=== PATIENT | female | born 1960 | race Caucasian/White ===

== ENCOUNTER 2018-05-26 12:00 | Observation (INO) ==
[2018-05-26] MEDS ORDERED: Acetaminophen 325 MG Tablet PO PRN (20:17)
[2018-05-26] MEDS ORDERED: Temazepam 15 MG Capsule PO PRN (21:00)
[2018-05-26] MEDS: Sod Chloride 0.9% Inj 1,000 ML IV.CONT SCH (21:34)
[2018-05-27] MEDS ORDERED: Morphine Inj 4 MG/ML Vial IV.PUSH PRN (01:10)
[2018-05-27] MEDS ORDERED: Dextrose 50% in Water 50 ML Vial IV.PUSH PRN (01:13)
[2018-05-27 06:49] LABS: Baso % (Auto) 0.2 % (0.0-2.0); Eos % (Auto) 0.1 % (0.0-4.0); Hematocrit 36.1 % (35.0-46.0); Hemoglobin 11.9 gm/dL (11.6-15.3); Lymph # (Auto) 1.3 th/mm3 (1.0-4.8); Lymph % (Auto) 11.6 % (9.0-44.0); Mean Corpuscular HGB Conc 33.1 % (32.0-36.0); Mean Corpuscular Hemoglobin 29.9 pg (27.0-34.0); Mean Corpuscular Volume 90.5 fL (80.0-100.0); Mean Platelet Volume 7.9 fL (7.0-11.0); Mono % (Auto) 8.7 % (0.0-8.0); Neut # (Auto) 9.3 th/mm3 (1.8-7.7); Neut % (Auto) 79.4 % (16.0-70.0); Platelet Count 342 th/mm3 (150-450); Red Blood Count 3.99 mil/mm3 (4.00-5.30); Red Cell Distribution Width 12.1 % (11.6-17.2); White Blood Count 11.6 th/mm3 (4.0-11.0)
[2018-05-27] MEDS: Sod Chloride 0.9% Inj 1,000 ML IV.CONT SCH ×2 (06:50→17:03)
[2018-05-27 07:00] LABS: Potassium 3.7 meq/L (3.5-5.1)
[2018-05-27 07:06] LABS: Calcium 8.7 mg/dL (8.5-10.1); Carbon Dioxide 29.7 meq/L (21.0-32.0)
[2018-05-27] MEDS: Insulin NovoLOG Aspart Correctional Sugar Inj SQ SCH ×4 (09:32→20:58)
--- NOTE | 2018-05-27 10:29 | P.HP ---
History of Present Illness Primary Care Physician: No Primary Care Physician Chief Complaint: Nausea vomiting History of Present Illness: 57-year-old female with known history of hypertension, hyperlipidemia, diabetes , fibromyalgia who originally presented to the emergency department 05/25/18 and was pyelonephritis and was discharged home on Cipro. Patient states that she went home and she was not able to tolerate anything by mouth. She had nausea vomiting so she came back to the emergency department. Patient had workup done again in the emergency department showed a mild worsening in her WBC count however renal functions and electrolytes are all stable. As indicated that the patient was given Zofran without any significant relief. Because the patient could not tolerate anything by mouth, it was recommended by the ER physician that the patient be observed in the hospital for further evaluation and management. Patient denies any abdominal pain. She has not tried to tolerate anything by mouth this morning. Patient denies any hematemesis, diarrhea, constipation, melena, hematochezia. - Diagnosis (1) Intractable nausea and vomiting Review of Systems All other systems reviewed negative except as stated in HPI Gastrointestinal: Reports nausea, Reports vomiting PMFSH - History History Provided By: Patient - Medical History Medical History: Medical History (Last Reviewed 05/27/18 @ 08:42 by EILEEN Walker) Hx of (Acute) Hypothyroid (Acute) High cholesterol (Acute) Depressed (Acute) Tubal ligation status (Acute) Hypertension (Acute) Osteoarthritis (Acute) Diabetes (Acute) Neuropathy (Acute) Fibromyalgia - Surgical History Surgical History: Surgical History (Last Reviewed 05/27/18 @ 08:42 by EILEEN Walker) Hx of tubal ligation (Acute) - Family History Family History: Family History (Last Updated 05/27/18 @ 10:28 by EILEEN Walker) Father History of fibromyalgia History of hypertension History of diabetes mellitus - Tobacco History Second Hand Smoke Exposure: Yes (SON AND ) Tobacco Use In Past 30 Days: No Smoking Status: Never smoker - Alcohol History How Often Do You Have a Drink Containing Alcohol: Never - Substance Use History Substance History: No History of Abuse Medications and Allergies Active Medications: Active Medications Acetaminophen (Tylenol) 650 mg PO Q4H PRN PRN Reason: Temp > 100.4 Clonidine HCl (Catapres) 0.1 mg PO Q6H PRN PRN Reason: SBP>160, DBP>90 Last Admin: 05/27/18 05:10 Dose: 0.1 mg Dextrose (D50w Vial) 50 ml IV.PUSH UNSCH PRN PRN Reason: PER HYPOGLYCEMIA PROTOCOL Glucagon (Glucagon Inj) 1 mg OTHER PRN PRN PRN Reason: for Hypoglycemia Protocol Ceftriaxone Sodium 1,000 mg/ (Sodium Chloride) 100 mls @ 200 mls/hr IV.SIG Q24H KARIN Sodium Chloride (Ns Inj) 1,000 mls @ 100 mls/hr IV.CONT .Q10H KARIN Last Admin: 05/27/18 06:50 Dose: 100 mls/hr Insulin Aspart (Novolog Insulin Correctional Sugar Inj) 0 unit SQ ACHS KARIN; Protocol Last Admin: 05/27/18 09:32 Dose: 4 unit Ondansetron HCl (Zofran Inj) 4 mg IV.PUSH Q6H PRN PRN Reason: NAUSEA OR VOMITING Last Admin: 05/27/18 05:10 Dose: 4 mg Promethazine HCl (Phenergan Inj) 25 mg IM Q6H PRN PRN Reason: NAUSEA OR VOMITING Last Admin: 05/27/18 09:32 Dose: 25 mg Temazepam (Restoril) 15 mg PO HS PRN PRN Reason: INSOMNIA Last Admin: 05/26/18 21:47 Dose: 15 mg Allergies Allergy/AdvReac Type Severity Reaction Status Date / Time No Known Allergies Allergy Verified 05/27/18 12:16 Home Medications Medication Instructions Recorded Confirmed Type amlodipine 5 mg PO DAILY 05/25/18 05/27/18 History atorvastatin 20 mg PO DAILY 05/25/18 05/27/18 History cyclobenzaprine 10 mg PO TID 05/25/18 05/27/18 History gabapentin 600 mg PO TID 05/25/18 05/27/18 History hydrochlorothiazide 12.5 mg PO DAILY 05/25/18 05/27/18 History insulin NPH and regular human 15 unit SUB-Q BID 05/25/18 05/27/18 History [Novolin 70/30 U-100 Insulin] ropinirole 1 mg PO TID 05/25/18 05/27/18 History Exam Vital signs: Vital Signs 05/26/18 18:30 05/26/18 22:00 05/27/18 00:00 Temperature 98.5 F 97 F L Pulse Rate 108 H 109 H 108 H Respiratory Rate 20 18 Blood Pressure 170/98 H 204/100 H Pulse Oximetry 98 99 05/27/18 04:00 Temperature 98.2 F Pulse Rate 102 H Respiratory Rate 20 Blood Pressure 180/100 H Pulse Oximetry 98 Intake & Output 05/26/18 05/27/18 05/27/18 18:59 06:59 18:59 Intake Total 1060 / 1060 Balance 1060 / 1060 Weight 109.5 kg Intake: IV 1000 / 1000 NS Inj 1,000 ML @ 100 mls/hr IV 1000 / 1000 .CONT .Q10H KARIN Rx#:[id number] Oral 60 / 60 Other: # Voids 3 Date of Last Bowel Movement 05/26/18 # Emeses 2 Weight On Admission 107.8 kg Narrative: GENERAL: Well-developed, well-nourished, in no acute distress. alert and orientated HEENT: Head is normocephalic without any lesions or masses noted. Facial features are symmetric. Eyes: Pupils equal round reactive to light. Extraocular muscles are intact. Conjunctivae were clear. Oropharyngeal: Pharynx without any erythema edema. Tongue is midline without deviation. Buccal mucosa is moist without any masses or lesions NECK: Supple without any masses. Trachea midline no deviation. No JVD, no bruits are appreciated CARDIAC: Regular rhythm, regular rate. S1/S2 are heard. No murmurs gallops or rubs. LUNGS: Clear to auscultation bilaterally. No wheeze, rhonchi or rales. No use of accessory muscles on inspiration or expiration. ABDOMEN: Soft, nontender. Nondistended. Bowel sounds heard in all 4 quadrants. No organomegaly or masses. Negative rebound, negative guarding EXTREMITIES: No edema, pulses are equal bilaterally. No cyanosis or clubbing NEUROLOGY: Mood and affect appear appropriate. Cranial nerves II through XII grossly intact. Muscle strength 5/5 in upper and lower extremities bilaterally. Deep tendon reflexes are 2+ in upper and lower extremities bilaterally. Results - Labs CBC & Chem 7: 05/27/18 05:10 05/27/18 05:10 Labs: Laboratory Results - last 24 hr 05/27/18 05/27/18 05/27/18 00:10 05:10 05:10 CBC w Diff Auto diff final WBC 11.6 H RBC 3.99 L Hgb 11.9 Hct 36.1 MCV 90.5 D MCH 29.9 MCHC 33.1 RDW 12.1 Plt Count 342 MPV 7.9 Neut % (Auto) 79.4 H Lymph % (Auto) 11.6 Moody % (Auto) 8.7 H Eos % (Auto) 0.1 Baso % (Auto) 0.2 Neut # (Auto) 9.3 H Lymph # (Auto) 1.3 Moody # (Auto) 1.0 H Eos # (Auto) 0.0 Baso # (Auto) 0.0 WBC Differential . Differential Comment . Sodium 140 Potassium 3.7 Chloride 103 Carbon Dioxide 29.7 Anion Gap 7 BUN 23 H Creatinine 1.00 Estimated GFR 57 L POC Glucose 286 H Random Glucose 237 H Calcium 8.7 D 05/27/18 07:39 CBC w Diff WBC RBC Hgb Hct MCV MCH MCHC RDW Plt Count MPV Neut % (Auto) Lymph % (Auto) Moody % (Auto) Eos % (Auto) Baso % (Auto) Neut # (Auto) Lymph # (Auto) Moody # (Auto) Eos # (Auto) Baso # (Auto) WBC Differential Differential Comment Sodium Potassium Chloride Carbon Dioxide Anion Gap BUN Creatinine Estimated GFR POC Glucose 247 H Random Glucose Calcium Caprini VTE Risk Assessment Caprini VTE Risk Assessment: No/Low Risk (score <= 1) Caprini Risk Assessment Model: Point Value = 1 Point Value = 2 Point Value = 3 Point Value = 5 Age 41-60 Minor surgery BMI > 25 kg/m2 Swollen legs Varicose veins or History of unexplained or recurrent spontaneous Oral contraceptives or hormone replacement Sepsis (< 1 month) Serious lung disease, including pneumonia (< 1 month) Abnormal pulmonary function Acute myocardial infarction Congestive heart failure (< 1 month) History of inflammatory bowel disease Medical patient at bed rest Age 61-74 Arthroscopic surgery Major open surgery (> 45 min) Laparoscopic surgery (> 45 min) Malignancy Confined to bed (> 72 hours) Immobilizing plaster cast Central venous access Age >= 75 History of VTE Family history of VTE Factor V Leiden Prothrombin [id number] Lupus anticoagulant Anticardiolipin antibodies Elevated serum homocysteine Heparin-induced thrombocytopenia Other congenital or acquired thrombophilia Stroke (< 1 month) Elective arthroplasty Hip, pelvis, or leg fracture Acute spinal cord injury (< 1 month) Prophylaxis Regimen: Total Risk Factor Score Risk Level Prophylaxis Regimen 0-1 Low Early ambulation 2 Moderate Order ONE of the following: *Sequential Compression Device (SCD) *Heparin 5000 units SQ BID 3-4 Higher Order ONE of the following medications: *Heparin 5000 units SQ TID *Enoxaparin/Lovenox 40 mg SQ daily (WT < 150 kg, CrCl > 30 mL/min) *Enoxaparin/Lovenox 30 mg SQ daily (WT < 150 kg, CrCl > 10-29 mL/min) *Enoxaparin/Lovenox 30 mg SQ BID (WT < 150 kg, CrCl > 30 mL/min) AND/OR *Sequential Compression Device (SCD) 5 or more Highest Order ONE of the following medications: *Heparin 5000 units SQ TID (Preferred with Epidurals) *Enoxaparin/Lovenox 40 mg SQ daily (WT < 150 kg, CrCl > 30 mL/min) *Enoxaparin/Lovenox 30 mg SQ daily (WT < 150 kg, CrCl > 10-29 mL/min) *Enoxaparin/Lovenox 30 mg SQ BID (WT < 150 kg, CrCl > 30 mL/min) AND *Sequential Compression Device (SCD) Assessment and Plan - Assessment (1) Intractable nausea and vomiting Code(s): R11.2 - Nausea with vomiting, unspecified Status: Acute - Plan Intractable nausea vomiting -Could be secondary to medication side effects, possible diabetic gastroparesis -We will give Phenergan 25 mg IM as needed -Start Reglan 5 mg IV before meals -Advance diet as tolerated -The patient tolerates diet, anticipate discharging home with p.o. medication Diabetes -Diabetic diet -Accu-Cheks with sliding scale insulin Urinary tract infection/pyelonephritis -Urine culture did indicate pansensitive Klebsiella pneumonia -Patient is on Rocephin at this time Hypertension, hyperlipidemia -Continue home medications Fibromyalgia -Continue home medications DVT prevention -Sequential compression devices Discussed Condition With: Patient, nursing staff, significant other at bedside
[2018-05-27] MEDS: amLODIPine 5 MG Tablet PO SCH (13:33)
[2018-05-28] MEDS: Sod Chloride 0.9% Inj 1,000 ML IV.CONT SCH ×2 (05:31→14:03)
[2018-05-28] MEDS: amLODIPine 5 MG Tablet PO SCH (09:05)
[2018-05-28] MEDS: Insulin NovoLOG Aspart Correctional Sugar Inj SQ SCH ×4 (09:07→22:52)
--- NOTE | 2018-05-28 11:11 | P.PN ---
Subjective Interval history: 57-year-old female who is seen and examined today for follow-up on intractable nausea and vomiting, urinary tract infection. Patient still unable tolerate anything by mouth. Still having episodes of nausea vomiting. Patient with uncontrolled hypertension, tachycardia still. Patient remains afebrile Physical Exam Vital signs: Vital Signs 05/27/18 12:00 05/27/18 15:13 05/27/18 16:00 Temperature 97.8 F 98.5 F Pulse Rate 100 H 101 H Respiratory Rate 20 20 Blood Pressure 176/100 H 160/90 H 162/96 H Pulse Oximetry 100 99 05/27/18 20:00 05/28/18 00:00 05/28/18 04:00 Temperature 98.3 F 98.7 F 98.2 F Pulse Rate 104 H 107 H 110 H Respiratory Rate 20 20 20 Blood Pressure 152/86 H 170/84 H 168/90 H Pulse Oximetry 96 99 99 05/28/18 08:00 Temperature 97.8 F Pulse Rate 105 H Respiratory Rate 17 Blood Pressure 182/87 H Pulse Oximetry 97 Intake & Output 05/27/18 05/28/18 05/28/18 18:59 06:59 18:59 Intake Total 1100 / 1100 1240 / 1240 Balance 1100 / 1100 1240 / 1240 Weight 109.2 kg Intake: IV 1100 / 1100 1000 / 1000 NS Inj 1,000 ML @ 100 mls/hr IV 1000 / 1000 1000 / 1000 .CONT .Q10H KARIN Rx#:[id number] Rocephin Inj 1,000 MG In NS Inj 100 / 100 100 ML @ 200 mls/hr IV.SIG Q24H KARIN Rx#:[id number] Oral 240 / 240 Other: # Voids 3 4 Date of Last Bowel Movement 05/26/18 05/26/18 # Emeses 6 4 Narrative: GENERAL: Well-developed, well-nourished, in no acute distress. alert and orientated HEENT: Head is normocephalic without any lesions or masses noted. Facial features are symmetric. Eyes:. Extraocular muscles are intact. Conjunctivae were clear. NECK: Supple without any masses. Trachea midline no deviation. No JVD, CARDIAC: Regular rhythm, regular rate. S1/S2 are heard. No murmurs gallops or rubs. LUNGS: Clear to auscultation bilaterally. No wheeze, rhonchi or rales. No use of accessory muscles on inspiration or expiration. ABDOMEN: Soft, nontender. Nondistended. Bowel sounds heard in all 4 quadrants. No organomegaly or masses. Negative rebound, negative guarding EXTREMITIES: No edema, pulses are equal bilaterally. No cyanosis or clubbing NEUROLOGY: Mood and affect appear appropriate. Cranial nerves II through XII grossly intact. Moving all extremities, speech is clear Results - Labs CBC & Chem 7: 05/27/18 05:10 05/27/18 05:10 Laboratory Results - last 24 hr 05/27/18 05/27/18 05/27/18 11:18 16:20 20:46 POC Glucose 235 H 226 H 248 H 05/28/18 08:02 POC Glucose 277 H Assessment and Plan - Assessment (1) Intractable nausea and vomiting Code(s): R11.2 - Nausea with vomiting, unspecified Status: Acute - Plan Intractable nausea vomiting -Could be secondary to medication side effects, possible diabetic gastroparesis -Continue Phenergan 25 mg IM as needed, Reglan 5 mg IV before meals -Obtain CT of the abdomen and pelvis to rule out any etiology of the patient's intractable nausea vomiting -Advance diet as tolerated Diabetes -Diabetic diet -Accu-Cheks with sliding scale insulin Urinary tract infection/pyelonephritis -Urine culture did indicate pansensitive Klebsiella pneumonia -Patient is on Rocephin at this time Hypertension, hyperlipidemia -Continue home medications Fibromyalgia -Continue home medications DVT prevention -Sequential compression devices
--- NOTE | 2018-05-28 14:04 | CT ---
EXAM DATE: 05/28/2018 1:50 PM EDT AGE/SEX: 57 years / Female INDICATIONS: Intractable nausea and vomiting. CLINICAL DATA: This is the patient's initial encounter. Patient reports that signs and symptoms have been present for 4 - 6 days and indicates a pain score of 2/10. MEDICAL/SURGICAL HISTORY: Diabetes. Hypertension. Tubal ligation. RADIATION DOSE: 24.91 CTDI (mGy) COMPARISON: No prior exams available for comparison. TECHNIQUE: Multiple contiguous axial images were obtained through the abdomen. Images were obtained using multiple row detector helical technique. Using automated exposure control and adjustment of the mA and/or kV according to patient size, radiation dose was kept as low as reasonably achievable to o btain optimal diagnostic quality images. DICOM format image data is available electronically for rev iew and comparison. FINDINGS: Lung bases are clear. No pleural effusion. Small amount pericardial fluid present. Small hiatal herni a. No acute findings in the liver, spleen, adrenals. Multiple layering gallstones in the gallbladder wit hout biliary ductal dilatation. There is some stranding of fat around the kidneys but also extending into the mesentery which is nonspecific. This can indicate prior inflammatory changes. A mild mesente ritis could give this appearance. There is mild constipation. No bowel obstruction. No free air. No significant free fluid. CONCLUSION: 1. Numerous layering gallstones without biliary ductal dilatation. 2. Mild constipation. 3. Stranding of fat in the abdomen predominantly around the kidneys and to a lesser extent around th e pancreas. Also extends into the root of the mesentery. Findings are nonspecific and can relate to p rior inflammatory changes. Mesenteritis could give this appearance. Electronically signed by: Remigio Fonseca MD 05/28/2018 2:03 PM EDT
[2018-05-28] MEDS ORDERED: Bisacodyl 10 MG Supp RECTAL ONE (14:12)
[2018-05-29] MEDS ORDERED: Senna/Docusate Sodium 8.6/50 MG Tablet PO ONE (08:05)
--- NOTE | 2018-05-29 08:09 | P.PN ---
Subjective Interval history: 57-year-old female who is seen and examined today in follow-up for intractable nausea vomiting. Patient doing little better today. She tolerated some Jell-O this morning. She has not vomited since yesterday. CT scan did show significant amount of stool throughout the colon, no obstruction was seen. Patient was given suppository yesterday with minimal output. Vital signs are stable. Patient remains afebrile. Physical Exam Vital signs: Vital Signs 05/28/18 12:00 05/28/18 20:00 05/29/18 00:00 Temperature 98.4 F 97.8 F 97.4 F L Pulse Rate 21 L 107 H 98 H Respiratory Rate 21 20 20 Blood Pressure 199/96 H 154/98 H 155/91 H Pulse Oximetry 95 97 97 05/29/18 04:00 05/29/18 07:47 Temperature 97.4 F L 98.2 F Pulse Rate 101 H 102 H Respiratory Rate 20 20 Blood Pressure 174/100 H 175/83 H Pulse Oximetry 96 97 Intake & Output 05/28/18 05/29/18 05/29/18 18:59 06:59 18:59 Intake Total 1100 / 1100 1060 / 1060 Balance 1100 / 1100 1060 / 1060 Weight 111.1 kg Intake: IV 1100 / 1100 1000 / 1000 NS Inj 1,000 ML @ 100 mls/hr IV 1000 / 1000 1000 / 1000 .CONT .Q10H KARIN Rx#:[id number] Rocephin Inj 1,000 MG In NS Inj 100 / 100 100 ML @ 200 mls/hr IV.SIG Q24H KARIN Rx#:[id number] Oral 60 / 60 Other: # Voids 2 Date of Last Bowel Movement 05/28/18 Narrative: GENERAL: Well-developed, well-nourished, in no acute distress. alert and orientated HEENT: Head is normocephalic without any lesions or masses noted. Facial features are symmetric. Eyes:. Extraocular muscles are intact. Conjunctivae were clear. NECK: Supple without any masses. Trachea midline no deviation. No JVD, CARDIAC: Regular rhythm, regular rate. S1/S2 are heard. No murmurs gallops or rubs. LUNGS: Clear to auscultation bilaterally. No wheeze, rhonchi or rales. No use of accessory muscles on inspiration or expiration. ABDOMEN: Soft, nontender. Nondistended. Bowel sounds heard in all 4 quadrants. No organomegaly or masses. Negative rebound, negative guarding EXTREMITIES: No edema, pulses are equal bilaterally. No cyanosis or clubbing NEUROLOGY: Mood and affect appear appropriate. Cranial nerves II through XII grossly intact. Moving all extremities, speech is clear Results - Labs CBC & Chem 7: 05/27/18 05:10 05/27/18 05:10 Laboratory Results - last 24 hr 05/28/18 05/28/18 05/28/18 12:00 16:15 22:51 POC Glucose 229 H 289 H 271 H 05/29/18 07:47 POC Glucose 253 H - Imaging Impressions Abdomen/Pelvis CT 05/28/18 11:09 CONCLUSION: 1. Numerous layering gallstones without biliary ductal dilatation. 2. Mild constipation. 3. Stranding of fat in the abdomen predominantly around the kidneys and to a lesser extent around the pancreas. Also extends into the root of the mesentery. Findings are nonspecific and can relate to prior inflammatory changes. Mesenteritis could give this appearance. Assessment and Plan - Assessment (1) Intractable nausea and vomiting Code(s): R11.2 - Nausea with vomiting, unspecified Status: Acute - Plan Intractable nausea vomiting -Could be secondary to medication side effects, possible diabetic gastroparesis -Continue Phenergan 25 mg IM and Reglan 5 mg IV before meals -CT the abdomen did not indicate significant stool throughout the colon with constipation. -Dulcolax suppository given yesterday with minimal output. Will give Malgorzata- Colace and MiraLAX this morning and monitor for output -Advance diet as tolerated Diabetes -Diabetic diet -Accu-Cheks with sliding scale insulin Urinary tract infection/pyelonephritis -Urine culture did indicate pansensitive Klebsiella pneumonia -Patient is on Rocephin at this time Hypertension, hyperlipidemia -Continue home medications Fibromyalgia -Continue home medications DVT prevention -Sequential compression devices
[2018-05-29] MEDS ORDERED: Polyethylene Glycol 3350 17 GM Packet PO ONE (08:10)
[2018-05-29] MEDS: Sod Chloride 0.9% Inj 1,000 ML IV.CONT SCH ×3 (08:30→18:48)
[2018-05-29] MEDS: amLODIPine 5 MG Tablet PO SCH (08:30)
[2018-05-29] MEDS: Insulin NovoLOG Aspart Correctional Sugar Inj SQ SCH ×4 (08:31→21:59)
[2018-05-29] MEDS: Docusate Sodium 100 MG Capsule PO SCH (21:54)
--- NOTE | 2018-05-30 07:40 | P.PN ---
Subjective Interval history: 57-year-old female who is seen and examined in follow-up today because of intractable nausea, vomiting. Patient has not had any recurrent vomiting in 48 hours. Patient is tolerating increased amounts of liquids. Patient's states that she has not had any significant bowel movement. Blood pressure continues to be elevated. Patient afebrile. Physical Exam Vital signs: Vital Signs 05/29/18 07:47 05/29/18 11:17 05/29/18 15:10 Temperature 98.2 F 98 F 98.4 F Pulse Rate 102 H 98 H 101 H Respiratory Rate 20 20 20 Blood Pressure 175/83 H 147/71 H 152/80 H Pulse Oximetry 97 97 97 05/29/18 20:00 05/30/18 00:00 05/30/18 07:31 Temperature 99.3 F 97.7 F 96.2 F L Pulse Rate 105 H 99 H 98 H Respiratory Rate 16 16 20 Blood Pressure 157/96 H 142/73 H 186/86 H Pulse Oximetry 98 99 98 Intake & Output 05/29/18 05/30/18 05/30/18 18:59 06:59 18:59 Intake Total 880 / 880 Balance 880 / 880 Weight 109.7 kg Intake: IV 100 / 100 Rocephin Inj 1,000 MG In NS Inj 100 / 100 100 ML @ 200 mls/hr IV.SIG Q24H KARIN Rx#:[id number] Oral 780 / 780 Other: # Voids 4 3 Date of Last Bowel Movement 05/28/18 Narrative: GENERAL: Well-developed, well-nourished, in no acute distress. alert and orientated HEENT: Head is normocephalic without any lesions or masses noted. Facial features are symmetric. Eyes:. Extraocular muscles are intact. Conjunctivae were clear. NECK: Supple without any masses. Trachea midline no deviation. No JVD, CARDIAC: Regular rhythm, regular rate. S1/S2 are heard. No murmurs gallops or rubs. LUNGS: Clear to auscultation bilaterally. No wheeze, rhonchi or rales. No use of accessory muscles on inspiration or expiration. ABDOMEN: Soft, nontender. Nondistended. Bowel sounds heard in all 4 quadrants. No organomegaly or masses. Negative rebound, negative guarding EXTREMITIES: No edema, pulses are equal bilaterally. No cyanosis or clubbing NEUROLOGY: Mood and affect appear appropriate. Cranial nerves II through XII grossly intact. Moving all extremities, speech is clear Results - Labs CBC & Chem 7: 05/27/18 05:10 05/27/18 05:10 Laboratory Results - last 24 hr 05/29/18 05/29/18 07:47 21:57 POC Glucose 253 H 198 H Assessment and Plan - Assessment (1) Intractable nausea and vomiting Code(s): R11.2 - Nausea with vomiting, unspecified Status: Acute - Plan Intractable nausea vomiting, -Patient has not vomited in 48 hours, however still has persistent nausea. Patient did try some cranberry juice at lunchtime and states that it did not stay down. Could be secondary to medication side effects, possible diabetic gastroparesis -Patient has not had any emesis in over 48 hours -Continue Phenergan 25 mg IM as needed, Reglan 5 mg IV before meals -CT the abdomen did not indicate significant stool throughout the colon with constipation. -KUB with flat and upright were performed which did show moderate constipation throughout the colon. No obstruction -We will continue with stool softener twice daily, give another dose of MiraLAX , Fleet enema today. -We will perform gastric emptying study tomorrow a.m. -Advance diet as tolerated Diabetes -Diabetic diet -Accu-Cheks with sliding scale insulin Urinary tract infection/pyelonephritis -Urine culture did indicate pansensitive Klebsiella pneumonia -Discontinue Rocephin, start Levaquin 750 mg daily Hypertension, hyperlipidemia -Blood pressure continues to be elevated -Increase to amlodipine 10 mg daily -Start lisinopril 10 mg daily Fibromyalgia -Continue home medications DVT prevention -Sequential compression devices
[2018-05-30] MEDS: Insulin NovoLOG Aspart Correctional Sugar Inj SQ SCH ×4 (08:19→22:45)
[2018-05-30] MEDS: Lisinopril 10 MG Tablet PO SCH (09:56)
[2018-05-30] MEDS: levoFLOXacin 750 MG Tablet PO SCH (09:56)
[2018-05-30] MEDS: Docusate Sodium 100 MG Capsule PO SCH ×2 (09:56→22:45)
[2018-05-30] MEDS: amLODIPine 10 MG Tablet PO SCH (09:56)
[2018-05-30] MEDS: Sod Chloride 0.9% Inj 1,000 ML IV.CONT SCH ×2 (12:28→17:25)
--- NOTE | 2018-05-30 16:41 | XR ---
EXAM DATE: 05/30/2018 4:38 PM EDT AGE/SEX: 57 years / Female INDICATIONS: Abdomen pain, vomiting CLINICAL DATA: This is the patient's subsequent encounter. Patient reports that signs and symptoms h ave been present for 1 week and indicates a pain score of 9/10. MEDICAL/SURGICAL HISTORY: . Diabetes. Hypertension. . Tubal ligation. COMPARISON: [facility], CT ABDOMEN & PELVIS W/O CONTRAST, 05/28/2018. . FINDINGS: Supine and upright views of the abdomen were performed. Moderate stool in the distal colon. No air-fl uid levels are seen. No dilated loops of bowel. No abnormal calcifications. The visualized lower lung s are clear. No evidence of free intraperitoneal gas. The osseous structures are unremarkable. CONCLUSION: 1. Moderate stool in the distal colon may reflect some degree of constipation. 2. Otherwise, nonobstructive bowel gas pattern. Electronically signed by: Dionisio Vazquez MD 05/30/2018 4:40 PM EDT
[2018-05-30] MEDS ORDERED: Polyethylene Glycol 3350 17 GM Packet PO ONE (16:44)
[2018-05-30] MEDS ORDERED: Sod Phosphate/Sod Biphosphate (Adult) Enema 133 ML Bottle RECTAL ONE (20:00)
[2018-05-31] MEDS: Sod Chloride 0.9% Inj 1,000 ML IV.CONT SCH ×2 (02:29→15:27)
--- NOTE | 2018-05-31 08:39 | P.PN ---
Subjective Interval history: Female who is seen and examined today for follow-up on intractable nausea, vomiting. Patient states that she actually feels much better today after having a rather large bowel movement last night. Patient starting getting appetite and is hungry. Discussed with patient extensively on plan of care with gastric emptying study and advancing the diet. Patient does understand. Vital signs are stable. Patient remains afebrile Physical Exam Vital signs: Vital Signs 05/30/18 11:16 05/30/18 15:30 05/30/18 20:00 Temperature 96.4 F L 96.8 F L 98.8 F Pulse Rate 101 H 104 H 101 H Respiratory Rate 20 20 18 Blood Pressure 138/75 142/76 H 143/69 H Pulse Oximetry 98 98 98 05/31/18 00:00 Temperature 97.4 F L Pulse Rate 103 H Respiratory Rate 18 Blood Pressure 144/77 H Pulse Oximetry 97 Intake & Output 05/30/18 05/31/18 05/31/18 18:59 06:59 18:59 Intake Total 840 / 840 200 / 200 Balance 840 / 840 200 / 200 Weight 109.7 kg Intake: Oral 840 / 840 200 / 200 Other: # Voids 4 1 Date of Last Bowel Movement 05/30/18 # Bowel Movements 1 3 Narrative: GENERAL: Well-developed, well-nourished, in no acute distress. alert and orientated HEENT: Head is normocephalic without any lesions or masses noted. Facial features are symmetric. Eyes:. Extraocular muscles are intact. Conjunctivae were clear. NECK: Supple without any masses. Trachea midline no deviation. No JVD, CARDIAC: Regular rhythm, regular rate. S1/S2 are heard. No murmurs gallops or rubs. LUNGS: Clear to auscultation bilaterally. No wheeze, rhonchi or rales. No use of accessory muscles on inspiration or expiration. ABDOMEN: Soft, nontender. Nondistended. Bowel sounds heard in all 4 quadrants. No organomegaly or masses. Negative rebound, negative guarding EXTREMITIES: No edema, pulses are equal bilaterally. No cyanosis or clubbing NEUROLOGY: Mood and affect appear appropriate. Cranial nerves II through XII grossly intact. Moving all extremities, speech is clear Results - Labs CBC & Chem 7: 05/27/18 05:10 05/27/18 05:10 Laboratory Results - last 24 hr 05/30/18 05/31/18 22:43 07:38 POC Glucose 183 H 159 H - Imaging Impressions Abdomen X-Ray 05/30/18 15:32 CONCLUSION: 1. Moderate stool in the distal colon may reflect some degree of constipation. 2. Otherwise, nonobstructive bowel gas pattern. Assessment and Plan - Assessment (1) Intractable nausea and vomiting Code(s): R11.2 - Nausea with vomiting, unspecified Status: Acute - Plan Intractable nausea vomiting, -Patient has not vomited in 48 hours, however still has persistent nausea. Patient did try some cranberry juice at lunchtime and states that it did not stay down. Could be secondary to medication side effects, possible diabetic gastroparesis -Patient has not had any emesis in over 48 hours -Continue Phenergan 25 mg IM as needed, Reglan 5 mg IV before meals -CT the abdomen did not indicate significant stool throughout the colon with constipation. -KUB with flat and upright were performed which did show moderate constipation throughout the colon. No obstruction -Patient indicates that she has had significant stool output since MiraLAX, Fleet enema -Awaiting gastric imaging study -Advance diet as tolerated Diabetes -Diabetic diet -Accu-Cheks with sliding scale insulin Urinary tract infection/pyelonephritis -Urine culture did indicate pansensitive Klebsiella pneumonia -Continue Levaquin 750 mg daily Hypertension, hyperlipidemia -Blood pressure continues to be elevated -Continue amlodipine 10 mg daily -Continue lisinopril 10 mg daily Fibromyalgia -Continue home medications DVT prevention -Sequential compression devices Discharge Planning: Anticipate discharge if patient tolerates diet.
[2018-05-31] MEDS: Insulin NovoLOG Aspart Correctional Sugar Inj SQ SCH ×3 (10:10→18:33)
[2018-05-31] MEDS: levoFLOXacin 750 MG Tablet PO SCH (10:12)
[2018-05-31] MEDS: amLODIPine 10 MG Tablet PO SCH (10:12)
[2018-05-31] MEDS: Docusate Sodium 100 MG Capsule PO SCH (10:12)
[2018-05-31] MEDS: Lisinopril 10 MG Tablet PO SCH (10:13)
--- NOTE | 2018-05-31 15:18 | NM ---
EXAM DATE: 05/31/2018 2:42 PM EDT AGE/SEX: 57 years / Female INDICATIONS: Intractable nausea and vomiting. CLINICAL DATA: This is the patient's initial encounter. Patient reports that signs and symptoms have been present for 2 days and indicates a pain score of 0/10. MEDICAL/SURGICAL HISTORY: Diabetes mellitus type II. Hypercholesterolemia. Hypertension. Tuba l ligation. COMPARISON: No prior exams available for comparison. DOSE: 1 mCi Tc99m Sulfur Colloid Labeled Whole Egg PO MEDICATION: 5 mg Reglan IV at 90 min minutes. IMAGING TIME: 2 hr TECHNIQUE: Following the oral ingestion of radiotracer-labeled meal, dynamic sequential images in the DOMINICAN projection were acquired with simultaneous computer acquisition. The data set was decay-correcte d. FINDINGS: Lag Phase: There is 45 minutes before onset of gastric emptying. Emptying: Gastric emptying kinetics are linear. The decay-corrected, back-extrapolated half-time of emptying is greater than 120 minutes. minutes. (Normal for this lab is 45 - 90 minutes) Intervention: There is good response to Reglan CONCLUSION: 1. Prolonged lag phase and markedly prolonged gastric emptying with good response to Reglan. Electronically signed by: Beau Nair MD 05/31/2018 3:17 PM EDT
--- NOTE | 2018-05-31 15:52 | P.DS ---
Date of admission: 05/26/18 18:26 Primary care physician: No Primary Care Physician Attending physician on discharge: Gerald Brunson Anticipated date of discharge: 05/31/18 Brief History from admission: 57-year-old female with known history of hypertension, hyperlipidemia, diabetes , fibromyalgia who originally presented to the emergency department 05/25/18 and was pyelonephritis and was discharged home on Cipro. Patient states that she went home and she was not able to tolerate anything by mouth. She had nausea vomiting so she came back to the emergency department. Patient had workup done again in the emergency department showed a mild worsening in her WBC count however renal functions and electrolytes are all stable. As indicated that the patient was given Zofran without any significant relief. Because the patient could not tolerate anything by mouth, it was recommended by the ER physician that the patient be observed in the hospital for further evaluation and management. Patient denies any abdominal pain. She has not tried to tolerate anything by mouth this morning. Patient denies any hematemesis, diarrhea, constipation, melena, hematochezia. DS: Diagnosis - Discharge Diagnosis (1) Intractable nausea and vomiting Status: Acute DS: Medications - Discharge Medications Prescriptions: amlodipine [Norvasc] 10 mg PO DAILY #30 tab levofloxacin 750 mg PO DAILY #7 tab lisinopril 10 mg PO DAILY #30 tab metoclopramide HCl [Reglan] 5 mg PO TIDAC #90 tab promethazine 25 mg PO Q6H PRN #20 tab PRN Reason: Nausea And Vomiting DS: Summary Hospital Course: 57-year-old female who originally presented to the hospital and was diagnosed with pyelonephritis. Patient was discharged home from the emergency department and started on Cipro. After patient got home she only took 1 antibiotic and started developing intractable nausea and vomiting. Because of that reason she presented back to the emergency department. Because the patient could not tolerate anything by mouth or hold her antibiotics today and is recommend the patient be admitted the hospital for further evaluation and management. Patient admitted the hospital with Phenergan, Reglan, IV fluids, IV antibiotics. Patient was evaluated in the next day and she still is having nausea and vomiting. Patient has CT scan done which did show moderate constipation without any signs of obstruction or etiology of her nausea vomiting. Patient was given Dulcolax suppository and had minimal relief. Patient had follow-up KUB done which did indicate continued constipation patient simply started on stool softeners, MiraLAX and ultimately Fleet enema. Surprisingly enough after the bowel regimen she did have a rather large bowel movement and feels much better. The patient did undergo a gastric emptying study which did indicate delayed gastric emptying with significant improvement after the use of Reglan. Patient is feeling much better. Appetite has returned. Patient has not had any vomiting in the last 70. Her nausea has significantly improved. We will plan discharge once patient tolerates diet. - Time Spent with Patient Total time spent providing and/or coordinating discharge services: Greater than 30 minutes - Quality: VTE Deep Vein Thrombosis/Pulmonary Embolism Present on Admission: No Exam Vital signs: Vital Signs 05/30/18 20:00 05/31/18 00:00 05/31/18 08:00 Temperature 98.8 F 97.4 F L 98.5 F Pulse Rate 101 H 103 H 101 H Respiratory Rate 18 18 20 Blood Pressure 143/69 H 144/77 H 158/70 H Pulse Oximetry 98 97 94 L 05/31/18 12:00 Temperature 98 F Pulse Rate 98 H Respiratory Rate 20 Blood Pressure 118/64 Pulse Oximetry 96 Intake & Output 05/30/18 05/31/18 05/31/18 18:59 06:59 18:59 Intake Total 840 / 840 200 / 200 Balance 840 / 840 200 / 200 Weight 109.7 kg Intake: Oral 840 / 840 200 / 200 Other: # Voids 4 1 Date of Last Bowel Movement 05/30/18 05/30/18 # Bowel Movements 1 3 Narrative: GENERAL: Well-developed, well-nourished, in no acute distress. alert and orientated HEENT: Head is normocephalic without any lesions or masses noted. Facial features are symmetric. Eyes: Pupils equal round reactive to light. Extraocular muscles are intact. Conjunctivae were clear. Oropharyngeal: Pharynx without any erythema edema. Tongue is midline without deviation. Buccal mucosa is moist without any masses or lesions NECK: Supple without any masses. Trachea midline no deviation. No JVD, no bruits are appreciated CARDIAC: Regular rhythm, regular rate. S1/S2 are heard. No murmurs gallops or rubs. LUNGS: Clear to auscultation bilaterally. No wheeze, rhonchi or rales. No use of accessory muscles on inspiration or expiration. ABDOMEN: Soft, nontender. Nondistended. Bowel sounds heard in all 4 quadrants. No organomegaly or masses. Negative rebound, negative guarding EXTREMITIES: No edema, pulses are equal bilaterally. No cyanosis or clubbing NEUROLOGY: Mood and affect appear appropriate. Cranial nerves II through XII grossly intact. Muscle strength 5/5 in upper and lower extremities bilaterally. Deep tendon reflexes are 2+ in upper and lower extremities bilaterally. Results Procedures completed during hospitalization: None Labs on day of discharge: Labs from last 24 hours 05/31/18 05/31/18 05/30/18 11:14 07:38 22:43 POC Glucose 193 H 159 H 183 H - Impressions ITS Impressions Abdomen/Pelvis CT 05/28/18 11:09 CONCLUSION: 1. Numerous layering gallstones without biliary ductal dilatation. 2. Mild constipation. 3. Stranding of fat in the abdomen predominantly around the kidneys and to a lesser extent around the pancreas. Also extends into the root of the mesentery. Findings are nonspecific and can relate to prior inflammatory changes. Mesenteritis could give this appearance. Abdomen X-Ray 05/30/18 15:32 CONCLUSION: 1. Moderate stool in the distal colon may reflect some degree of constipation. 2. Otherwise, nonobstructive bowel gas pattern. Gastric Emptying Nuclear Medicine 05/31/18 06:00 CONCLUSION: 1. Prolonged lag phase and markedly prolonged gastric emptying with good response to Reglan. Discharge Plan - Discharge Disposition Patient Disposition: 01 Discharge Home - Discharge Condition Condition: Stable - Discharge Order Discharge Orders: Discharge Order (Routine); Ordered 05/31/18 Ordered By: Renaldo Bergman - Discharge Details Anticipated Discharge Date: 05/31/18 - Physicians Team Primary Care Provider: Primary Care Josette Zamora Attending Provider: Gerald Brunson - Rxs /Orders / Referrals /Forms Prescriptions: New amlodipine [Norvasc] 10 mg Tablet 10 mg PO DAILY Qty: 30 RF: 0 levofloxacin 750 mg Tablet 750 mg PO DAILY Qty: 7 RF: 0 lisinopril 10 mg Tablet 10 mg PO DAILY Qty: 30 RF: 0 metoclopramide HCl [Reglan] 5 mg Tablet 5 mg PO TIDAC Qty: 90 RF: 0 promethazine 25 mg Tablet 25 mg PO Q6H PRN (Reason: Nausea And Vomiting) Qty: 20 RF: 0 Continue atorvastatin 20 mg Tablet 20 mg PO DAILY cyclobenzaprine 10 mg Tablet 10 mg PO TID gabapentin 600 mg Tablet 600 mg PO TID insulin NPH and regular human [Novolin 70/30 U-100 Insulin] 100 unit/mL (70- 30) Suspension 15 unit SUB-Q BID ropinirole 1 mg Tablet 1 mg PO TID Discontinued amlodipine 5 mg Tablet 5 mg PO DAILY ciprofloxacin HCl [Cipro] 500 mg tablet 500 mg PO BID Qty: 14 RF: 0 hydrochlorothiazide 12.5 mg Capsule 12.5 mg PO DAILY ondansetron HCl [Zofran] 4 mg tablet 4 mg PO Q6H PRN (Reason: nausea and vomiting) Qty: 12 RF: 0 Referrals: Primary Care Josette Zamora [Primary Care Provider] - See Instructions - Post Discharge Care Plan Care Plan Goals: Your Health Problems: Goals to Promote Your Health: * To prevent worsening of your condition * To maintain your health at the optimal level Directions to Meet Your Goals: * Take your medications as prescribed * Follow your dietary instruction * Follow activity as directed * Keep your appointments as scheduled * Take your immunizations and boosters as scheduled * If your symptoms worsen call your PCP * If no PCP go to Urgent Care or Emergency Room Smoking is dangerous to your health. Avoid second hand smoke. You may reach the 24-hour crisis hotline for domestic abuse at .
== END 2018-05-31 19:21 | disposition home or self-care (01) ==
LOC: PHEDDLT 18:25 → INTOOBSV 18:26 → PHEDA 18:26
PROVIDERS: ADMIT Internal Medicine; ATTEND Internal Medicine